=== PATIENT | female | born 1990 | race American Indian/Alaskan Native ===

== ENCOUNTER 2020-06-19 14:09 | Outpatient (CLI) | payer BC ==
--- NOTE | 2020-06-19 15:21 | XRay Report ---
Abdomen single view INDICATION: Abdominal pain IMPRESSION: Nonobstructive bowel gas pattern. Multiple pelvic phleboliths are noted. Signer Name: John Garcia MD Signed: 06/19/2020 3:16 PM Workstation Name: [email or web address]
== END 2020-06-19 14:10 | disposition home or self-care (01) ==
LOC: SPVIMAG 14:09
PROVIDERS: ATTEND Internal Medicine
DX: R10.84 Generalized abdominal pain (principal); I87.8 Other specified disorders of veins
CPT/HCPCS: 74018